=== PATIENT | female | born 1945 | race Caucasian/White ===

== ENCOUNTER → 2016-02-29 | Outpatient (CLI) | payer OTHER, MEDICARE ==
[~2016-02-29] MED LIST: B-COTAB18 PO; BIOT1TAB5 PO; CALC-358 PO; CHOL100010 PO; EXM/25 PO; LOSA1TAB38 PO; MULTTAB58 PO; MVC20 PO; NOPALEA PO; TRAM-10 PO; TYLOTC500 PO; VITAMINE; WHEAPOW
--- NOTE | 2016-03-04 13:07 | CODING QUERY MEDICAL NECESSITY ---
SUPPORTING DIAGNOSIS NEEDED A supporting diagnosis is required for the test/procedure performed on this patient in order for us to be reimbursed by the patient's insurance. Please provide a supporting diagnosis for the following test/procedure listed below next to the test name along with your signature. *If there is no additional diagnosis for this patient that would support the following test/procedure please document that below next to the test/procedure. Test(s)/Procedure(s) that require a supporting diagnosis: DOS 02/28 * Bone Density Study DIAGNOSIS: Provider Signature: Date: Thank you Kate Lopez Health Information Management Once completed, please kindly fax back to [phone] For questions please call [phone]
== END | disposition home or self-care (01) ==
LOC: C.MAMM 13:25
PROVIDERS: ATTEND Nurse Practitioner Family
DX: C50.919 Malignant neoplasm of unspecified site of unspecified female breast (principal)

== ENCOUNTER → 2016-08-06 | Outpatient (CLI) | payer OTHER, MEDICARE ==
--- NOTE | 2016-08-06 14:43 | MAMMOGRAPHY REPORT ---
UNILATERAL LEFT DIGITAL DIAGNOSTIC MAMMOGRAM TOMOSYNTHESIS WITH CAD AND TARGETED LEFT ULTRASOUND: 07/25 CLINICAL HISTORY: 71-year-old woman presents for follow-up in the left breast. A circumscribed 4 x 5 mm mass in the 6:00 left breast was felt to correlate with a simple cyst seen on MRI. Reassess poss ible intraductal debris in the 9:00 left breast. Personal history of right breast cancer status post breast conservation therapy. TECHNIQUE: Left breast tomosynthesis in addition to standard 2D mammography was performed. Current st udy was also evaluated with a Computer Aided Detection (CAD) system. COMPARISON: Comparison is made to exams dated: 02/22/2016 breast MRI, 02/05/2016 ultrasound, 016 mammogram, 02/20/2015 breast MRI, 02/02/2015 mammogram, and 02/15/2014 mammogram - [facility]. BREAST COMPOSITION: There are scattered areas of fibroglandular density in the left breast. FINDINGS: There is an asymmetry in the superior posterior left breast, only seen on the MLO view whic h could represent overlapping tissue although this area is equivocal on the corresponding tomosynthes is images. Therefore, an additional spot compression tomosynthesis a view and targeted ultrasound we re performed. With the additional spot compression left MLO view, this asymmetry effaces to baseline and has the appearance of normal overlapping tissue. No corresponding abnormality is seen on the ex aggerated lateral CC tomosynthesis images. No obvious new mass, developing asymmetry, focal area of architectural distortion or suspicious mass or calcifications are identified in the left breast. Targeted ultrasound was performed in the 6:00, 9:00 and upper outer quadrants of the left breast. In the 6:00 axis, 2 cm from the nipple, there is a mildly complicated cyst with thin internal nonvascul ar septations measuring 5.9 x 3.0 x 2.6 mm. This is thought to correlate with the circumscribed mamm ographic mass and also with the benign cyst seen on recent MRI. In the 9:00 left breast, 1 cm from t he nipple, there is focal duct ectasia with echogenic material within the duct. In total this segmen t of the duct measures 7.9 x 2.4 x 2.5 mm. Evaluating this finding in comparing to the prior MRI, th ere is a focally dilated duct in the 9:00 anterior left breast which is intrinsically T1 hyperintense and does not demonstrate any postcontrast enhancement suggesting this represents benign intraductal debris as opposed to a suspicious intraductal mass. This segment of duct has not significantly mccracken ed in size or appearance since the prior left breast ultrasound dated 02/05/2016, given slight differ ences in measuring technique. Throughout the left upper outer quadrant, no suspicious solid or cysti c mass is identified. IMPRESSION: ACR-BI-RADS CATEGORY 3: PROBABLY BENIGN, TARGETED ULTRASOUND ACR-BI-RADS CATEGORY 3: PRO BABLY BENIGN 1. There is no mammographic evidence of malignancy within the left breast. There is a stable 4 mm c ircumscribed mass in the 6:00 axis, thought to correlate with a complicated cyst seen on ultrasound, also corresponding with a cyst seen on MRI. This is considered benign and no further close follow-up is needed at this time. 2. An asymmetry in the superior left breast on the initial MLO view effaces with a supplemental spot compression left MLO view and most likely represented normal overlapping tissue. No suspicious sono graphic correlate was seen. 3. There is a focally dilated duct in the 9:00 left breast, 1 cm from the nipple identified on ultra sound. When referring back to the breast MRI, a mildly prominent duct is seen in this location, and there is no evidence of postcontrast enhancement suggesting this represents benign duct ectasia with internal debris. However, another short interval follow-up targeted ultrasound in the 9:00 axis is r ecommended in 6 more months to ensure longer stability. Bilateral screening mammography is also due at that time. These results and recommendations were discussed with the patient at the time of the exam. She tenta tively scheduled a follow-up appointment prior to leaving our department. Approximately 10% of breast cancers are not detected with mammography. A negative mammographic report should not delay biopsy if a clinically suggestive mass is present. Kiley Wright M.D. ay/:08/06/2016 14:32:05 Technical Support Representative: Mone BROUSSARD)(Mary), [facility] letter sent: Follow Up Recommended 3 BI-RADS Code: ACR-BI-RADS Category 3: Probably Benign Ultrasound BI-RADS: ACR-BI-RADS Category 3: Pr obably Benign
== END | disposition home or self-care (01) ==
LOC: C.MAMM 09:56
PROVIDERS: ATTEND Surgery
DX: Z09 Encounter for follow-up examination after completed treatment for conditions other than malignant neoplasm (principal); C50.919 Malignant neoplasm of unspecified site of unspecified female breast

== ENCOUNTER → 2016-10-01 | Outpatient (CLI) | payer OTHER, MEDICARE ==
[2015-09-28 13:24] VITALS: BP 130/81; PULSE 75
[2016-10-01 13:53] VITALS: BP 134/66; PULSE 77; TEMP 36.3; O2SAT 97
--- NOTE | 2016-10-01 16:43 | Radiation Oncology Follow-Up ---
Radiation Oncology Follow-Up Date of Visit Oct 01, 2016. Reason For Visit Annual follow-up Radiation Completion Date 03/17/13 Diagnosis (1) Infiltrating duct adenocarcinoma Status: Resolved Onset Date: 10/15/2012 Location: right breast Histology Subtype: ductal Stage: l (A) Permanent Comment: Abnormal right breast mammogram Excisional biopsy 10/15/2012 revealing invasive ductal carcinoma Estrogen receptor positive, progesterone receptor negative, HER-2/natasha negative Status post quadrantectomy and axillary dissection 10/02/2012 Pathologic stage [id number] Oncotype DX score of 13 status post completion of radiation therapy 03/17/2013 received 6120 cGy Last Edited By: Sana Iglesias on Sep 28, 2014 15:38 Interim History She is noted that her skin is easily irritated. On a regular basis she uses our low with cornstarch and this helps to prevent discomfort of the skin. She also uses cocoa butter lotion. She feels that the changes of the skin and the breasts fibrous tissue is unchanged over this past year. She has completed lymphedema therapy for her arm. Following the lymphedema therapy she was also given treated for arthritis of her hands which greatly helped in discomfort of her upper extremities. She did have an outbreak of herpes zoster. This was treated through her primary care physician's office. The lesions quickly resolved with Valtrex. It did take a number of months for the pain to resolve. Allergies Coded Allergies: Adhesives (Verified Allergy, Mild, RASH, 02/20/15) Lisinopril (Unverified Allergy, Mild, Cough, 09/28/14) Home Medications Scheduled Acetaminophen (Tylenol), 1,000 MG PO DAILY B-Complex Vitamins (Vitamin B Complex), 1 TAB PO DAILY Biotin (Biotin), 500 MCG PO BID Calcium Citrate-Vitamin D (Calcium Citrate+ D), 1 TAB PO DAILY Cholecalciferol (Vitamin D), 2,000 INTER.UNIT PO DAILY Exemestane (Aromasin), 25 MG PO DAILY Losartan Potassium (Cozaar), 100 MG PO DAILY Lovastatin (Lovastatin), 0.5 TAB PO DAILY Multiple Vitamin (Multivitamin), 1 TAB PO DAILY Wheat Dextrin (Benefiber Drink Mix), 2 TBS DAILY [Nopalea], 1 CUP PO DAILY Review of Systems Gastrointestinal: Symptoms: WNL GI Comments: Bowels are not normal since having colon cancer in 2009 Oral: Symptoms: No Problems Respiratory: Symptoms: WNL Urinary: Symptoms: WNL Skin: Symptoms: No Problems Other Skin Symptoms: Gets pain in right axilla area Breast: Right Upper Arm Measurement: 28.8 Right Mid Arm Measurement: 24.8 Right Wrist Measurement: 16.4 Left Upper Arm Measurement: 28.3 Left Mid Arm Measurement: 24.2 Left Wrist Measurement: 16.3 Arm Dominence: Right Patient Cosmetic Evaluation: Poor Staff Cosmetic Evalaluation: Poor Physical Exam Vital Signs Date Time Temp Pulse Resp B/P (MAP) Pulse Ox O2 Delivery O2 Flow Rate FiO2 10/01/16 13:53 36.3 77 20 134/66 97 Pain: Pain Onset: April 2015 went away returned mid August Pain Duration: only occurs in the AM Side: Right Pain Location: Breast/Axilla Patient Pain Scale: 0 - 10 Initial Pain Intensity: 6.0 Pain Description: Aching Additional Comments: mild nausea pain Fatigue: None General Appearance: no apparent distress Eyes: normal inspection, EOMI ENT: normal ENT inspection, hearing grossly normal Neck: no adenopathy, thyroid normal Respiratory/Chest: lungs clear, no respiratory distress, no accessory muscle use Breast: Breast examination reveals well-healed incisions of the right breast. There is generalized fibrous changes of the breast. There are no masses or tenderness and no axillary adenopathy. The previous red discoloration has resolved. Using the [place] score cosmesis she has a fair outcome. The left breast showed no masses or tenderness and no axillary adenopathy. Cardiovascular: regular rate, rhythm, no gallop, no murmur Abdomen: non tender, soft Extremities: no pedal edema Neurologic/Psychiatric: no motor/sensory deficits, alert, normal mood/affect Skin: warm/dry Laboratory Studies Test 08/29/16 11:48 White Blood Count 5.10 K/uL (4.8-10.8) Red Blood Count 3.97 M/uL (4.2-5.4) Hemoglobin 12.7 g/dL (12.0-16.0) Hematocrit 38.5 % (37-47) Mean Corpuscular Volume 97.0 fL (80-100) Mean Corpuscular Hemoglobin 32.0 pg (25-34) Mean Corpuscular Hemoglobin Concent 33.0 g/dl (32-36) Platelet Count 235 K/uL (130-400) Mean Platelet Volume 10.4 fL (7.4-10.4) Neutrophils (%) (Auto) 56.6 % Lymphocytes (%) (Auto) 33.7 % Monocytes (%) (Auto) 7.5 % Eosinophils (%) (Auto) 1.8 % Basophils (%) (Auto) 0.4 % Neutrophils # (Auto) 2.89 K/uL (1.4-6.5) Lymphocytes # (Auto) 1.72 K/uL (1.2-3.4) Monocytes # (Auto) 0.38 K/uL (0.11-0.59) Eosinophils # (Auto) 0.09 K/uL (0-0.5) Basophils # (Auto) 0.02 K/uL (0-0.2) RDW Standard Deviation 49.2 fL (36.4-46.3) RDW Coefficient of Variation 13.7 % (11.5-14.5) Immature Granulocyte % (Auto) 0.0 % Immature Granulocyte # (Auto) 0.00 K/uL (0.00-0.02) Sodium Level 143 mmol/L (136-145) Potassium Level 3.9 mmol/L (3.5-5.1) Chloride Level 108 mmol/L (98-107) Carbon Dioxide Level 31 mmol/L (21-32) Anion Gap 4.0 mmol/L (3-11) Blood Urea Nitrogen 13 mg/dl (7-18) Creatinine 0.74 mg/dl (0.60-1.20) Est Creatinine Clear Calc Drug Dose 62.8 ml/min Estimated GFR () 93.2 Estimated GFR (Non- 80.4 BUN/Creatinine Ratio 17.7 (10-20) Random Glucose 90 mg/dl (70-99) Calcium Level 9.1 mg/dl (8.5-10.1) Total Bilirubin 0.6 mg/dl (0.2-1) Aspartate Amino Transferase (AST) 16 U/L (15-37) Alanine Aminotransferase (ALT) 24 U/L (12-78) Alkaline Phosphatase 54 U/L (45-117) Lactate Dehydrogenase 197 U/L (84-246) Total Protein 6.5 gm/dl (6.4-8.2) Albumin 3.6 gm/dl (3.4-5.0) Globulin 2.9 gm/dl (2.5-4.0) Albumin/Globulin Ratio 1.2 (0.9-2) Additional Studies Patient: YAYA AMARAL [facility] Rec: [id number] Address1: [address] [place] [address] Address2: [facility] ID: [id number] Date: 1945 Sex: F Ref Phy: Pedro Cooper M.D. Att Phy: Mike Wright Rosa Phy: Pedro Cooper M.D. Inter Phy: Kiley Wright MD [facility] Zip: [place] [address] SC: C.MAMM Report #: [id number] Community Service Worker: STEW Diagnosis: 6 MO F/U Service Date: 08/06/16 MNE: [id number] Ordering Dr: Mike Wright CC: Mike Wright CONF: DICTATED BY: Kiley Wright MD MAMMOGRAPHY REPORT UNILATERAL LEFT DIGITAL DIAGNOSTIC MAMMOGRAM TOMOSYNTHESIS WITH CAD AND TARGETED LEFT ULTRASOUND: 08/06/2016 CLINICAL HISTORY: 71-year-old woman presents for follow-up in the left breast. A circumscribed 4 x 5 mm mass in the 6:00 left breast was felt to correlate with a simple cyst seen on MRI. Reassess possible intraductal debris in the 9: 00 left breast. Personal history of right breast cancer status post breast conservation therapy. TECHNIQUE: Left breast tomosynthesis in addition to standard 2D mammography was performed. Current study was also evaluated with a Computer Aided Detection (CAD ) system. COMPARISON: Comparison is made to exams dated: 02/22/2016 breast MRI, 2015 ultrasound, 02/05/2016 mammogram, 02/20/2015 breast MRI, 02/02/2015 mammogram, and 02/15/2014 mammogram - [facility]. BREAST COMPOSITION: There are scattered areas of fibroglandular density in the left breast. FINDINGS: There is an asymmetry in the superior posterior left breast, only seen on the MLO view which could represent overlapping tissue although this area is equivocal on the corresponding tomosynthesis images. Therefore, an additional spot compression tomosynthesis a view and targeted ultrasound were performed. With the additional spot compression left MLO view, this asymmetry effaces to baseline and has the appearance of normal overlapping tissue. No corresponding abnormality is seen on the exaggerated lateral CC tomosynthesis images. No obvious new mass, developing asymmetry, focal area of architectural distortion or suspicious mass or calcifications are identified in the left breast. Targeted ultrasound was performed in the 6:00, 9:00 and upper outer quadrants of the left breast. In the 6:00 axis, 2 cm from the nipple, there is a mildly complicated cyst with thin internal nonvascular septations measuring 5.9 x 3.0 x 2.6 mm. This is thought to correlate with the circumscribed mammographic mass and also with the benign cyst seen on recent MRI. In the 9:00 left breast , 1 cm from the nipple, there is focal duct ectasia with echogenic material within the duct. In total this segment of the duct measures 7.9 x 2.4 x 2.5 mm. Evaluating this finding in comparing to the prior MRI, there is a focally dilated duct in the 9:00 anterior left breast which is intrinsically T1 hyperintense and does not demonstrate any postcontrast enhancement suggesting this represents benign intraductal debris as opposed to a suspicious intraductal mass. This segment of duct has not significantly changed in size or appearance since the prior left breast ultrasound dated 02/05/2016, given slight differences in measuring technique. Throughout the left upper outer quadrant, no suspicious solid or cystic mass is identified. IMPRESSION: ACR-BI-RADS CATEGORY 3: PROBABLY BENIGN, TARGETED ULTRASOUND ACR-BI -RADS CATEGORY 3: PROBABLY BENIGN 1. There is no mammographic evidence of malignancy within the left breast. There is a stable 4 mm circumscribed mass in the 6:00 axis, thought to correlate with a complicated cyst seen on ultrasound, also corresponding with a cyst seen on MRI. This is considered benign and no further close follow-up is needed at this time. 2. An asymmetry in the superior left breast on the initial MLO view effaces with a supplemental spot compression left MLO view and most likely represented normal overlapping tissue. No suspicious sonographic correlate was seen. 3. There is a focally dilated duct in the 9:00 left breast, 1 cm from the nipple identified on ultrasound. When referring back to the breast MRI, a mildly prominent duct is seen in this location, and there is no evidence of postcontrast enhancement suggesting this represents benign duct ectasia with internal debris. However, another short interval follow-up targeted ultrasound in the 9:00 axis is recommended in 6 more months to ensure longer stability. Bilateral screening mammography is also due at that time. These results and recommendations were discussed with the patient at the time of the exam. She tentatively scheduled a follow-up appointment prior to leaving our department. Approximately 10% of breast cancers are not detected with mammography. A negative mammographic report should not delay biopsy if a clinically suggestive mass is present. Kiley Wright M.D. ay/:08/06/2016 14:32:05 Novelty Dipper: Mone BROUSSARD)(Mary), [facility] letter sent: Follow Up Recommended 3 BI-RADS Code: ACR-BI-RADS Category 3: Probably Benign Ultrasound BI-RADS: ACR- BI-RADS Category 3: Probably Benign Dictated by: Kiley Wright MD Signed by: Kiley Wright MD Assessment & Plan Plan: Continue mammography as scheduled. Continue follow-up with Dr. Dhaliwal and her primary care physician. We asked her to return to our office in 1 year. She may call if she has any questions or concerns in the interim. She has now completed lymphedema therapy. She can call if she has any current concerns about recurrence. Total Time In Follow-Up I spent 20 minutes speaking to the patient performing examination. I spent 15 minutes reviewing information in completing this note Copy To Ba Dhaliwal D.O.; Pedro Cooper M.D.
== END | disposition home or self-care (01) ==
LOC: C.ONC 13:43
PROVIDERS: ATTEND Physician Assistant Medical
DX: Z08 Encounter for follow-up examination after completed treatment for malignant neoplasm (principal); Z92.3 Personal history of irradiation; Z85.3 Personal history of malignant neoplasm of breast

== ENCOUNTER → 2017-02-05 | Outpatient (CLI) | payer OTHER, MEDICARE ==
[~2017-02-05] MED LIST changes: -TRAM-10 PO; -VITAMINE
--- NOTE | 2017-02-05 16:02 | MAMMOGRAPHY REPORT ---
BILATERAL DIGITAL DIAGNOSTIC MAMMOGRAM TOMOSYNTHESIS WITH CAD AND TARGETED BILATERAL ULTRASOUND: 01/24 CLINICAL HISTORY: 71-year-old woman with a personal history of right breast cancer status post breast conservation treatment in 2012. She presents for bilateral annual mammography and also reports a go lf ball sized painful lump that she occasionally feels in the right axilla, located within an area of skin thickening and tightening due to prior surgery. Also follow-up of findings in the left breast including a dilated hypoechoic duct in the 9:00 left breast on ultrasound. During the last diagnostic evaluation performed in January 2016, the patient reported tightness in t he right axilla and sonographic evaluation was also performed at that time. A breast MRI performed a fter that diagnostic workup felt to demonstrate any suspicious abnormality in the breasts or right ax illa. TECHNIQUE: Bilateral breast tomosynthesis in addition to standard 2D mammography was performed. Curre nt study was also evaluated with a Computer Aided Detection (CAD) system. COMPARISON: Comparison is made to exams dated: 08/06/2016 mammogram, 02/05/2016 mammogram, 02/02/2015 mammogram, 08/12/2014 mammogram, 02/15/2014 mammogram - [facility], and 10/15/2012 m ammogram. BREAST COMPOSITION: There are scattered areas of fibroglandular density in both breasts. FINDINGS: The CC and MLO views of the right breast are suboptimal due to skin tightening after surger y in the right breast. Within this limitation, there is expected architectural distortion as well as skin irregularity in the upper outer posterior right breast, likely due to prior lumpectomy. No obv ious new mass, asymmetry, suspicious microcalcifications or unexpected distortion is identified in th e right breast. There is a stable low-density circumscribed 4 mm mass in the slightly medial middle one third of the left breast, which is stable mammographically dating back to 2013 and also thought to represent a com plicated cyst on both MRI and ultrasound. No new suspicious mass, architectural distortion or cluste r of microcalcifications is seen in the left breast. Targeted ultrasound was performed over the area of concern in the right axilla and also in the 9:00 l eft breast to reevaluate the area of focal duct ectasia with hypoechoic debris within the duct. Over the area of concern in the right axilla, hypoechoic scar tissue is identified without evidence of in creased vascularity. No suspicious lymphadenopathy or suspicious solid or cystic mass identified. I n the left 9:00 breast, 1 cm from the nipple, a comet-shaped isoechoic to slightly hypoechoic mass is again identified, most likely representing focal duct ectasia with internal debris. This measures 6 .1 x 2.2 x 2.3 mm and has not significantly changed comparing back to the 02/05/2016 ultrasound and m ost likely benign duct ectasia. Another 12 month follow-up targeted ultrasound is recommended to ens ure at least 2 years of stability to confirm benignity. IMPRESSION: ACR-BI-RADS CATEGORY 3: PROBABLY BENIGN, TARGETED ULTRASOUND ACR-BI-RADS CATEGORY 3: PRO BABLY BENIGN 1. No suspicious targeted sonographic abnormality in the area of cough size lump and pain in the rig ht axilla, within an area of prior surgery which was pointed out by the patient on today's exam. The patient is currently scheduled for a breast MRI within the next month, in which this area can be ass essed to evaluate for any abnormal enhancement. Clinical follow-up is also recommended, and the jannie ent reports she has a follow-up appointment with her Oncologist, Dr. Dhaliwal. 2. Stable mammographic appearance of the breasts including post treatment changes in the right breas t and a stable benign low-density circumscribed 4 mm mass in the medial left breast. 3. Focal duct ectasia with internal debris identified in the 9:00 left breast on ultrasound is stabl e for one year but another targeted ultrasound is recommended in 12 months to ensure at least 2 years of stability to confirm benignity. These results and recommendations were discussed with the patient at the time of the exam. Approximately 10% of breast cancers are not detected with mammography. A negative mammographic report should not delay biopsy if a clinically suggestive mass is present. Kiley Wright M.D. ay/:02/05/2017 12:26:21 High School Professional: Vika VASQUEZ(Hernán)(M), [facility] letter sent: Follow Up Recommended 3 BI-RADS Code: ACR-BI-RADS Category 3: Probably Benign Ultrasound BI-RADS: ACR-BI-RADS Category 3: Pr obably Benign
== END | disposition home or self-care (01) ==
LOC: C.MAMM 10:04
PROVIDERS: ATTEND Internal Medicine Hematology & Oncology
DX: N63.10 Unspecified lump in the right breast, unspecified quadrant (principal); Z85.3 Personal history of malignant neoplasm of breast

== ENCOUNTER → 2017-02-25 | Outpatient (CLI) | payer OTHER, MEDICARE ==
[~2017-02-25] MED LIST changes: +GADAVIST IV PRN; +MECL1TAB40 PO; +OXYB5TAB21 PO
--- NOTE | 2017-02-26 14:58 | MAMMOGRAPHY REPORT ---
BREAST MRI OF BOTH BREASTS : 02/25/2017 CLINICAL HISTORY: 71-year-old woman with a personal history of right breast cancer status post breast conservation treatment in 2012. She recently presented for diagnostic workup and reported a golf ba ll sized painful lump in the right axilla, for which targeted ultrasound demonstrated no suspicious a bnormalities. She also presents for additional surveillance given the personal history of right criss[address] cancer. COMPARISON: Comparison is made to exams dated: 02/05/2017 mammogram, 02/05/2017 ultrasound, 7 ultrasound, 08/06/2016 mammogram, 02/22/2016 breast MRI, and 02/05/2016 ultrasound - [facility]. TECHNIQUE: Using a 1.5 Nel magnet and dedicated breast coil, multisequence axial images were obtain ed through the breasts. After uneventful IV administration of 7 mL of Gadavist, dynamic multiphase c ontrast-enhanced axial images, and sagittal postcontrast were obtained. Temporal subtraction axial i mages and 3-D MIP images are provided. Everything was then reviewed on a 3-D workstation, [employer]. FINDINGS: Right breast: There is no significant background parenchymal enhancement. There is skin irregularity and expected architectural distortion in the upper outer posterior right breast, at the site of prio r lumpectomy. A 2 mm focus of enhancement is again seen near the surgical site, not significantly ch anged comparing to the prior 2015 and 2014 breast MRIs and with 2 years of stability most likely marline gn (axial page 57/116). There is no suspicious enhancing mass near the surgical site in the right br east. No suspicious non-mass enhancement. No suspicious masses or lymphadenopathy seen in the right axilla in the area of painful lump described by the patient. Continued clinical follow-up is recomm ended. Left breast: There is minimal background parenchymal enhancement of the left breast. A 3.9 mm T2 hyp erintense rim-enhancing cyst is again seen in the 6:00 far inferior left breast, unchanged dating sai k to 2014, therefore considered benign. No new suspicious enhancing mass, non-mass enhancement, arch itectural distortion or suspicious kinetics are seen in the left breast. It should be noted that the re are no suspicious enhancing masses or linear enhancement to suggest suspicious intraductal process in the approximate 9:00 left breast in the area of possible duct with internal debris described on t argeted left breast ultrasound report. This finding is most likely benign given lack of MRI enhancem ent. No suspicious left axillary lymphadenopathy. IMPRESSION: ACR BI-RADS CATEGORY 2: BENIGN 1. Expected posttreatment changes in the right breast, without MRI evidence of malignancy. 2. No suspicious masses or suspicious lymphadenopathy identified in the right axilla in the area of concern reported by the patient. Therefore, continued clinical monitoring is recommended. 3. Stable MRI appearance of the left breast, without evidence of malignancy. The patient will receive written notification of the results. Kiley Wright M.D. ay/:02/25/2017 21:30:18 Food Adviser: tax audit manager, [facility] letter sent: Normal /2 BI-RADS Code: ACR BI-RADS Category 2: Benign
== END | disposition home or self-care (01) ==
LOC: C.MRI 09:43
PROVIDERS: ATTEND Nurse Practitioner Family
DX: C50.911 Malignant neoplasm of unspecified site of right female breast (principal); Z08 Encounter for follow-up examination after completed treatment for malignant neoplasm

== ENCOUNTER → 2017-10-02 | Outpatient (CLI) | payer OTHER, MEDICARE ==
[~2017-10-02] MED LIST changes: -GADAVIST IV PRN
[2017-10-02 13:06] VITALS: BP 150/67; PULSE 77; TEMP 37; O2SAT 96
--- NOTE | 2017-10-02 14:39 | Radiation Oncology Follow-Up ---
Radiation Oncology Follow-Up Date of Visit Oct 02, 2017. Reason For Visit Annual follow-up Radiation Completion Date finished 03-17-2013 Diagnosis (1) Infiltrating duct adenocarcinoma Status: Resolved Onset Date: 10/15/2012 Location: Right breast Histology Subtype: Ductal Stage: l (A) Permanent Comment: Abnormal right breast mammogram Excisional biopsy 10/15/2012 revealing invasive ductal carcinoma Estrogen receptor positive, progesterone receptor negative, HER-2/natasha negative Status post quadrantectomy and axillary dissection 10/02/2012 Pathologic stage [id number] Oncotype DX score of 13 status post completion of radiation therapy 03/17/2013 received 6120 cGy Last Edited By: Sana Iglesias on Sep 28, 2014 15:38 Interim History She is noted no particular changes to the breast over this past year. She continues to have discomfort if she lies on the breast. If there is pressure with wearing a bra there can be discomfort. If she lies on her breast for a long period night she can have significant pain up to level 8 or 9. When she does not lie on the breast she does not have pain. She is up-to-date on mammography as well as MRIs.. She is noted no masses and no changes of the axilla. She has had no swelling of her arm. She has been followed by her primary care in regards to vertigo. She is going to be undergoing physical therapy. She is on meclizine. She has also had issues with stool incontinence. She has had this for many years. She recalls speaking with her colorectal surgeon 4 years ago about this issue. She stated that it was felt that the condition has occurred due to having large children at . One child was over 9 pounds and 2 others were 8 pounds. Allergies Coded Allergies: Adhesives (Verified Allergy, Mild, RASH, 02/20/15) Lisinopril (Unverified Allergy, Mild, Cough, 09/28/14) Home Medications Scheduled Acetaminophen (Tylenol), 1,000 MG PO TID B-Complex Vitamins (Vitamin B Complex), 1 TAB PO DAILY Biotin (Biotin), 500 MCG PO DAILYBB Calcium Citrate-Vitamin D (Calcium Citrate+ D), 1 TAB PO DAILY Cholecalciferol (Vitamin D), 2,000 INTER.UNIT PO DAILY Exemestane (Aromasin), 25 MG PO DAILY Losartan Potassium (Cozaar), 100 MG PO DAILY Lovastatin (Lovastatin), 0.5 TAB PO DAILY Multiple Vitamin (Multivitamin), 1 TAB PO DAILY Oxybutynin Chloride (Ditropan Xl), 1 TAB PO DAILY Wheat Dextrin (Benefiber Drink Mix), 2 TBS DAILY [Nopalea], 2 TAB PO DAILY Scheduled PRN Meclizine HCl (Meclizine HCl), 1 TAB PO TID PRN for Dizziness or Vertigo Review of Systems Gastrointestinal: Symptoms: WNL GI Comments: occ. soft stool incontinence , since bowel cancer surgery 2009 Oral: Symptoms: No Problems Respiratory: Symptoms: WNL Urinary: Symptoms: Incontinence Comments: nocturia times 2 - 3 , " leakage at times " Skin: Symptoms: No Problems Other Skin Symptoms: "occ inside of elbows gets itchy " Breast: Right Upper Arm Measurement: 31.5 Right Mid Arm Measurement: 24.5 Right Wrist Measurement: 16.1 Left Upper Arm Measurement: 30.5 Left Mid Arm Measurement: 24.5 Left Wrist Measurement: 15.5 Arm Dominence: Right Patient Cosmetic Evaluation: Excellent Staff Cosmetic Evalaluation: Excellent Physical Exam Vital Signs Date Time Temp Pulse Resp B/P (MAP) Pulse Ox O2 Delivery O2 Flow Rate FiO2 10/02/17 13:06 37.0 77 16 150/67 96 Fatigue: None General Appearance: no apparent distress Eyes: normal inspection, EOMI ENT: normal ENT inspection, hearing grossly normal Neck: no adenopathy, thyroid normal Respiratory/Chest: lungs clear, no respiratory distress, no accessory muscle use Breast: Breast examination reveals well-healed incisions of the right breast. There is generalized fibrous tissue. This is mainly located in the right upper outer quadrant. She does not elicit tenderness to palpation. There are no masses. There is no axillary adenopathy. There is a deficit in the upper outer quadrant from lumpectomy. There is asymmetry. There is mild telangiectasia. Using the Middlebrook score of cosmesis she has a fair outcome. The left breast showed no masses or tenderness and no axillary adenopathy. The left breast showed no masses or tenderness and no axillary adenopathy. Cardiovascular: regular rate, rhythm, no gallop, no murmur Extremities: no pedal edema Neurologic/Psychiatric: no motor/sensory deficits, alert, normal mood/affect Skin: warm/dry Pain Management Patient Reports Pain: No Side: Bilateral Patient Preferred Pain Scale: 0 - 10 Initial Pain Intensity: 0.0 Pain Management Plan She denies pain therefore requires no pain management. She does have pain if there is pressure on the breast. This did not require any medications. Laboratory Laboratory Results: not applicable Pathology Pathology Results: not applicable Imaging Imaging Studies: were reviewed, and pertinent findings noted below Imaging Comments Patient: YAYA AMARAL Rec: [id number] Address1: [address] [place] [address] Address2: Acct ID: [id number] Date: 1945 Sex: F Ref Phy: Ba Dhaliwal D.O. Att Phy: Ba Dhaliwal D.O. Rosa Phy: Pedro Cooper M.D. Inter Phy: Kiley Wright MD [facility] Zip: [place] [id number] SC: C.MAMM Report #: [id number] Glove Former: SARA Diagnosis: 6 MO F/U BILATERAL Service Date: 02/05/17 MNE: MAMM1 Ordering Dr: Ba Dhaliwal D.O. CC: Ba Dhaliwal D.O. CONF: DICTATED BY: Kiley Wright MD MAMMOGRAPHY REPORT BILATERAL DIGITAL DIAGNOSTIC MAMMOGRAM TOMOSYNTHESIS WITH CAD AND TARGETED BILATERAL ULTRASOUND: 02/05/2017 CLINICAL HISTORY: 71-year-old woman with a personal history of right breast cancer status post breast conservation treatment in 2012. She presents for bilateral annual mammography and also reports a golf ball sized painful lump that she occasionally feels in the right axilla, located within an area of skin thickening and tightening due to prior surgery. Also follow-up of findings in the left breast including a dilated hypoechoic duct in the 9:00 left breast on ultrasound. During the last diagnostic evaluation performed in January 2016, the patient reported tightness in the right axilla and sonographic evaluation was also performed at that time. A breast MRI performed after that diagnostic workup felt to demonstrate any suspicious abnormality in the breasts or right axilla. TECHNIQUE: Bilateral breast tomosynthesis in addition to standard 2D mammography was performed. Current study was also evaluated with a Computer Aided Detection (CAD) system. COMPARISON: Comparison is made to exams dated: 08/06/2016 mammogram, 02/05/2016 mammogram, 02/02/2015 mammogram, 08/12/2014 mammogram, 02/15/2014 mammogram - [facility] [address], and 10/15/2012 mammogram. BREAST COMPOSITION: There are scattered areas of fibroglandular density in both breasts. FINDINGS: The CC and MLO views of the right breast are suboptimal due to skin tightening after surgery in the right breast. Within this limitation, there is expected architectural distortion as well as skin irregularity in the upper outer posterior right breast, likely due to prior lumpectomy. No obvious new mass, asymmetry, suspicious microcalcifications or unexpected distortion is identified in the right breast. There is a stable low-density circumscribed 4 mm mass in the slightly medial middle one third of the left breast, which is stable mammographically dating back to 2013 and also thought to represent a complicated cyst on both MRI and ultrasound. No new suspicious mass, architectural distortion or cluster of microcalcifications is seen in the left breast. Targeted ultrasound was performed over the area of concern in the right axilla and also in the 9:00 left breast to reevaluate the area of focal duct ectasia with hypoechoic debris within the duct. Over the area of concern in the right axilla, hypoechoic scar tissue is identified without evidence of increased vascularity. No suspicious lymphadenopathy or suspicious solid or cystic mass identified. In the left 9:00 breast, 1 cm from the nipple, a comet-shaped isoechoic to slightly hypoechoic mass is again identified, most likely representing focal duct ectasia with internal debris. This measures 6.1 x 2.2 x 2.3 mm and has not significantly changed comparing back to the 02/05/2016 ultrasound and most likely benign duct ectasia. Another 12 month follow-up targeted ultrasound is recommended to ensure at least 2 years of stability to confirm benignity. IMPRESSION: ACR-BI-RADS CATEGORY 3: PROBABLY BENIGN, TARGETED ULTRASOUND ACR-BI -RADS CATEGORY 3: PROBABLY BENIGN 1. No suspicious targeted sonographic abnormality in the area of cough size lump and pain in the right axilla, within an area of prior surgery which was pointed out by the patient on today's exam. The patient is currently scheduled for a breast MRI within the next month, in which this area can be assessed to evaluate for any abnormal enhancement. Clinical follow-up is also recommended, and the patient reports she has a follow-up appointment with her Oncologist, Dr. Dhaliwal. 2. Stable mammographic appearance of the breasts including post treatment changes in the right breast and a stable benign low-density circumscribed 4 mm mass in the medial left breast. 3. Focal duct ectasia with internal debris identified in the 9:00 left breast on ultrasound is stable for one year but another targeted ultrasound is recommended in 12 months to ensure at least 2 years of stability to confirm benignity. These results and recommendations were discussed with the patient at the time of the exam. Approximately 10% of breast cancers are not detected with mammography. A negative mammographic report should not delay biopsy if a clinically suggestive mass is present. Kiley Wright M.D. ay/:02/05/2017 12:26:21 Project Economist: Vika BROUSSARD)(Mary), [facility] [address] [facility] letter sent: Follow Up Recommended 3 BI-RADS Code: ACR-BI-RADS Category 3: Probably Benign Ultrasound BI-RADS: ACR- BI-RADS Category 3: Probably Benign Dictated by: Kiley Wright MD Signed by: Kiley Wright MD Patient: YAYA AMARAL [facility] Rec: [id number] Address1: [address] [place] [address] Address2: Acct ID: [id number] Date: 1945 Sex: F Ref Phy: Brandi Rosas CRNP Att Phy: Brandi Rosas CRNP Rosa Phy: Pedro Cooper M.D. Inter Phy: Kiley Wright MD [facility] Zip: [place] [address] SC: AriannaMRI Report #: [id number] Glove Former: ALIZE Diagnosis: 12 MONTH F/U HX BREAST CA Service Date: 02/25/17 MNE: MAMM1 Ordering Dr: Brandi Rosas CC: Brandi Rosas CRNP CONF: DICTATED BY: Kiley Wright MD MAMMOGRAPHY REPORT BREAST MRI OF BOTH BREASTS : 02/25/2017 CLINICAL HISTORY: 71-year-old woman with a personal history of right breast cancer status post breast conservation treatment in 2012. She recently presented for diagnostic workup and reported a golf ball sized painful lump in the right axilla, for which targeted ultrasound demonstrated no suspicious abnormalities. She also presents for additional surveillance given the personal history of right breast cancer. COMPARISON: Comparison is made to exams dated: 02/05/2017 mammogram, 2016 ultrasound, 08/06/2016 ultrasound, 08/06/2016 mammogram, 02/22/2016 breast MRI, and 02/05/2016 ultrasound - [facility] [address] [facility]. TECHNIQUE: Using a 1.5 Nel magnet and dedicated breast coil, multisequence axial images were obtained through the breasts. After uneventful IV administration of 7 mL of Gadavist, dynamic multiphase contrast-enhanced axial images, and sagittal postcontrast were obtained. Temporal subtraction axial images and 3-D MIP images are provided. Everything was then reviewed on a 3-D workstation, [employer]. FINDINGS: Right breast: There is no significant background parenchymal enhancement. There is skin irregularity and expected architectural distortion in the upper outer posterior right breast, at the site of prior lumpectomy. A 2 mm focus of enhancement is again seen near the surgical site, not significantly changed comparing to the prior 2015 and 2014 breast MRIs and with 2 years of stability most likely benign (axial page 57/116). There is no suspicious enhancing mass near the surgical site in the right breast. No suspicious non-mass enhancement. No suspicious masses or lymphadenopathy seen in the right axilla in the area of painful lump described by the patient. Continued clinical follow -up is recommended. Left breast: There is minimal background parenchymal enhancement of the left breast. A 3.9 mm T2 hyperintense rim-enhancing cyst is again seen in the 6:00 far inferior left breast, unchanged dating back to 2014, therefore considered benign. No new suspicious enhancing mass, non-mass enhancement, architectural distortion or suspicious kinetics are seen in the left breast. It should be noted that there are no suspicious enhancing masses or linear enhancement to suggest suspicious intraductal process in the approximate 9:00 left breast in the area of possible duct with internal debris described on targeted left breast ultrasound report. This finding is most likely benign given lack of MRI enhancement. No suspicious left axillary lymphadenopathy. IMPRESSION: ACR BI-RADS CATEGORY 2: BENIGN 1. Expected posttreatment changes in the right breast, without MRI evidence of malignancy. 2. No suspicious masses or suspicious lymphadenopathy identified in the right axilla in the area of concern reported by the patient. Therefore, continued clinical monitoring is recommended. 3. Stable MRI appearance of the left breast, without evidence of malignancy. The patient will receive written notification of the results. Kiley Wright M.D. ay/:02/25/2017 21:30:18 Project Economist: fitter / welder, [facility] letter sent: Normal / BI-RADS Code: ACR BI-RADS Category 2: Benign Dictated by: Kiley Wright MD Signed by: Kiley Wright MD Assessment & Plan Plan: We discussed the issues with the breast discomfort. This has shown gradual improvement over the the years post treatment. The post radiation therapy changes are showing improvement also there is less fibrous tissue and resolution of the inflammatory changes that had occurred post treatment to the skin. Continue regular follow-up with her medical oncologist and primary care provider. She is going to make an appointment with the colorectal surgeon to discuss the issue with bowel leakage. I did today speak with her about using Metamucil and doing Kegel exercises. Dr. Cooper is referring her for physical therapy to treat the vertigo. She will continue with scheduled mammography and MRIs. We asked her to return to our office in 1 year. She may call if she has any questions or concerns in the interim. Total Time In Follow-Up I spent 20 minutes speaking to the patient in performing examination. I spent 15 minutes reviewing information and completing this note. Copy To Pedro Cooper M.D.; Brandi Rosas CRNP
== END | disposition home or self-care (01) ==
LOC: C.ONC 12:44
PROVIDERS: ATTEND Physician Assistant Medical
DX: Z08 Encounter for follow-up examination after completed treatment for malignant neoplasm (principal); Z92.3 Personal history of irradiation; Z85.3 Personal history of malignant neoplasm of breast

== ENCOUNTER 2022-08-05 10:30 | Observation (INO) ==
[2022-08-05] MEDS ORDERED: MECLIZINE HCL 25 MG TAB PO STA (10:57)
[2022-08-05 11:17] LABS: Basophils # (auto) 0.03 K/uL (0-0.2); Basophils % (auto) 0.4 %; Eosinophils # (auto) 0.07 K/uL (0-0.50); Hematocrit (blood only) 38.3 % (37.0-47.0); Hemoglobin 12.6 g/dl (12.0-16.0); Immature Granulocytes # (auto) 0.02 K/uL (0.01-0.20); Immature Granulocytes % (auto) 0.3 %; Lymphocytes # (auto) 1.38 K/uL (1.2-3.4); Lymphocytes % (auto) 18.8 %; Mean Corpuscular Hemoglobin 31.7 pg (25.0-34.0); Mean Corpuscular Hgb Conc 32.9 g/dL (32.0-36.0); Mean Corpuscular Volume 96.5 fL (80.0-100.0); Mean Platelet Volume 10.2 fL (9.4-12.4); Monocytes # (auto) 0.44 K/uL (0.11-0.59); Neutrophils # (auto) 5.42 K/uL (1.40-6.50); Neutrophils % (auto) 73.5 %; Platelet Count 267 K/uL (130-400); RDW Coefficient of Variation 12.5 % (11.5-14.5); RDW Standard Deviation 44.1 fL (36.4-46.3); Red Blood Count 3.97 M/uL (4.20-5.40); White Blood Count 7.36 K/ul (4.8-10.8)
[2022-08-05 11:31] LABS: Albumin Globulin Ratio 1.7 (0.9-2); Albumin Level 4.2 gm/dl (3.4-5.0); BUN Creatinine Ratio 21.6 (10-20); Bilirubin,Total 0.4 mg/dl (0.2-1.0); Calcium 9.1 mg/dl (8.6-10.3); Creatinine Clr Calc Pharmacy 58.1 ml/min; Est GFR (African American) 89.3 ml/min; Est GFR (Non-African American) 77.1 ml/min; Globulin 2.5 gm/dl (2.5-4.0); Potassium 4.1 mmol/L (3.5-5.1); Total Protein 6.7 gm/dl (6.0-8.3)
[2022-08-05 11:40] LABS: Prothrombin Time 10.8 Seconds (9.0-12.0)
[2022-08-05 11:41] LABS: Troponin I High Sensitivity 65.5 pg/ml (0-14)
[2022-08-05] MEDS ORDERED: OPTIRAY 320 500ml IV ONE (11:53)
--- NOTE | 2022-08-05 12:08 | Emergency Department Note ---
Impression & Plan Dizziness, Non-ST elevation [place] (NSTEMI) ED Provider Note HISTORY OF PRESENT ILLNESS: Patient is a 77-year-old female presenting with dizziness and vomiting. Patient reports that this morning she was getting up and getting around when she felt very dizzy, described as her head spinning. Denies any changes in vision. Reports feeling very unsteady on her feet. Reports that walking and movements of her head makes her dizziness worse. Denies any chest pain or shortness of breath. Reports a history of vertigo. Denies any recent head injury or chiropractic manipulation of her neck ROS: as above PHYSICAL EXAM: Constitutional: Patient appears in no acute distress. HENT: Head: Normocephalic and atraumatic. Eyes: EOMI, PERRL. No reproducible dizziness or nystagmus elicited. Mouth/Throat: Mucous membranes moist. Neck: Trachea midline. Neck supple. Cardiovascular: RRR, No murmurs, rubs or gallops. Intact distal pulses. Pulmonary/Chest: No respiratory distress. Breath sounds clear and equal bilaterally. No wheezes or rales. Abdominal: BS +. Abdomen soft, no tenderness, rebound or guarding. Musculoskeletal: No edema, tenderness or deformity noted. Skin: Warm and dry. No rash, erythema, pallor or cyanosis Psychiatric: Appropriate mood and affect for situation. Neurological: Alert and keenly responsive. Facies symmetric. Able to raise eyebrows, close eyes, smile, puff mouth, stick out tongue, move tongue left and right and raise palate symmetrically. Able to shrug shoulders. PERRLA. SILT to forehead below eye and at jawline. Can hear soft nose bilaterally. Good finger to nose. Strength 5/5 in bilateral upper and lower extremities. SILT throughout bilateral upper and lower extremities. MDM: - Vitals signs stable. - History obtained via patient. Patient presents with dizziness and vomiting. Patient reports getting up and around this morning she began to feel dizzy described as her head spinning. Denies any change in vision. Reports feeling very unsteady on her feet with ambulation. She states that movements of her head make her dizziness worse. Denies any chest pain or shortness of breath. Reports a history of vertigo. Denies any recent head injury or chiropractic manipulation of her neck - Chronic conditions affecting care: invasive duct adenocarcinoma - Differential diagnoses include, but are not limited to: Peripheral vertigo; CVA; intracranial hemorrhage; ACS; pneumonia - Order placed for continuous cardiac monitoring. At this time, monitor showed rate of 75 bpm with normal sinus rhythm, per my interpretation. - External medical records reviewed. - EKG reviewed by myself showed normal sinus rhythm. Rate 72 bpm. QTc 468. No acute ischemic changes. Noted to have RBBB. - Laboratory workup interpreted by myself showed normal WBC; stable electrolytes; elevated troponin (67.9) - CXR negative for pneumonia, per my interpretation - CT head wo contrast negative for acute intracranial pathology. - CTA head/neck negative for acute pathology. - Patient's repeat troponin 65.5. - Discussed results with patient. Her dizziness sounds like peripheral vertigo, but with her elevated troponin, concern for possible cardiac etiology. Discussed admission with the patient and she was agreeable. - Patient given 324 mg PO aspirin.s - Discussion was had with oncology social worker about patient's case and need for admission. - Hospitalist consulted for admission - Patient admitted to [facility] for further evaluation and management. ASSESSMENT AND PLAN: Diagnosis: dizziness; NSTEMI Plan: admit Past Med/Surg History Medical History Essential hypertension History of colon cancer Infiltrating duct adenocarcinoma (10/15/12) Mixed dyslipidemia Osteoarthritis of multiple joints Restless leg syndrome Type 2 diabetes mellitus Vitamin D deficiency Surgical History History of carpal tunnel release History of D&C History of partial colectomy History of partial mastectomy of right breast History of total right knee replacement Family History Mother Diabetes Cancer Father Heart disease Sister Diabetes Social History Smoking Status: Never smoker Preferred Language: Amharic marital status: current occupational status: retired Feels Safe at Home: Yes Allergies Allergies Allergy/AdvReac Type Severity Reaction Status Date / Time adhesive Allergy Mild RASH Verified 09/29/19 13:29 lisinopril Allergy Mild Cough Verified 09/29/19 13:29 Home Meds Home Medications Medication Instructions Recorded Confirmed omega-3 fatty acids 1,000 mg 1,000 mg PO BID 09/30/18 08/05/22 capsule (Fish Oil Concentrate) calcium carbonate 600 mg calcium 600 mg PO DAILY 04/16/19 08/05/22 (1,500 mg) tablet (Calcium) cholecalciferol (vitamin D3) 25 1,000 unit PO DAILY 04/16/19 08/05/22 mcg (1,000 unit) tablet (Vitamin D3) losartan 100 mg tablet 100 mg PO QAM 04/16/19 08/05/22 lovastatin 10 mg tablet 10 mg PO HS 04/16/19 08/05/22 acetaminophen 500 mg tablet 1,000 mg PO TID 09/29/19 08/05/22 (Tylenol Extra Strength) conjugated estrogens 0.625 mg/gram 0.625 mg vaginal PRN 09/29/19 08/05/22 vaginal cream (Premarin) multivitamin 1 tab PO DAILY 09/29/19 08/05/22 duloxetine 20 mg capsule,delayed 20 mg PO DAILY 08/05/22 08/05/22 release (Cymbalta) imipramine HCl 10 mg tablet 10 mg PO BID 08/05/22 08/05/22 quinine-vitamin E capsule 0 cap PO DAILY PRN cramp 08/05/22 08/05/22 Results & Data (ED) Vital Signs Vital Signs - 24 hr 08/05/22 10:19 08/05/22 10:19 08/05/22 10:58 Temperature 36.6 C Temperature Source Oral Pulse Rate 78 77 Pulse Rate [Apical] 71 Respiratory Rate 18 Blood Pressure 138/92 Blood Pressure [Left Arm] Blood Pressure Mean 107 Blood Pressure Mean [Left Arm] Pulse Oximetry 92 Oxygen Delivery Method Room Air Sepsis Recent Fever Within 48 Hours No Sepsis New/Unexplained Change in Mental Status N/A Sepsis Action Taken by Nursing No Action Required 08/05/22 14:25 Temperature Temperature Source Pulse Rate Pulse Rate [Apical] 80 Respiratory Rate 18 Blood Pressure Blood Pressure [Left Arm] 181/71 H Blood Pressure Mean Blood Pressure Mean [Left Arm] 107 Pulse Oximetry 98 Oxygen Delivery Method Sepsis Recent Fever Within 48 Hours Sepsis New/Unexplained Change in Mental Status Sepsis Action Taken by Nursing Laboratory Data 08/05/22 10:53 08/05/22 10:53 Lab Results 08/05/22 08/05/22 08/05/22 Range/Units 10:53 10:53 10:53 WBC 7.36 (4.8-10.8) K/ul RBC 3.97 L (4.20-5.40) M/uL Hgb 12.6 (12.0-16.0) g/dl Hct 38.3 (37.0-47.0) % MCV 96.5 (80.0-100.0) fL MCH 31.7 (25.0-34.0) pg MCHC 32.9 (32.0-36.0) g/dL RDW Std Deviation 44.1 (36.4-46.3) fL RDW Coeff of Cherie 12.5 (11.5-14.5) % Plt Count 267 (130-400) K/uL MPV 10.2 (9.4-12.4) fL Immature Gran % (Auto) 0.3 % Neut % (Auto) 73.5 % Lymph % (Auto) 18.8 % [place] % (Auto) 6.0 % Eos % (Auto) 1.0 % Baso % (Auto) 0.4 % Neut # (Auto) 5.42 (1.40-6.50) K/uL Lymph # (Auto) 1.38 (1.2-3.4) K/uL [place] # (Auto) 0.44 (0.11-0.59) K/uL Eos # (Auto) 0.07 (0-0.50) K/uL Baso # (Auto) 0.03 (0-0.2) K/uL Immature Gran # (Auto) 0.02 (0.01-0.20) K/uL PT 10.8 (9.0-12.0) Seconds INR 1.0 (0.9-1.1) Sodium 140 (136-145) mmol/L Potassium 4.1 (3.5-5.1) mmol/L Chloride 103 (98-107) mmol/L Carbon Dioxide 30 (21-32) mmol/L Anion Gap 7 (3-11) BUN 16 (6-23) mg/dl Creatinine 0.74 (0.6-1.2) mg/dl Est Cr Clr Drug Dosing 58.1 ml/min Est GFR ( Amer) 89.3 ml/min Est GFR (Non-Af Amer) 77.1 ml/min BUN/Creatinine Ratio 21.6 H (10-20) Glucose 113 H (70-99(Fasting)) mg/dl Calcium 9.1 (8.6-10.3) mg/dl Total Bilirubin 0.4 (0.2-1.0) mg/dl AST 18 (13-39) U/L ALT 13 (7-52) U/L Alkaline Phosphatase 75 (34-104) U/L Troponin I High Sens 65.5 H* (0-14) pg/ml Total Protein 6.7 (6.0-8.3) gm/dl Albumin 4.2 (3.4-5.0) gm/dl Globulin 2.5 (2.5-4.0) gm/dl Albumin/Globulin Ratio 1.7 (0.9-2) SARS-CoV-2, RNA, NAAT (NEGATIVE) 08/05/22 08/05/22 Range/Units 10:53 14:45 WBC (4.8-10.8) K/ul RBC (4.20-5.40) M/uL Hgb (12.0-16.0) g/dl Hct (37.0-47.0) % MCV (80.0-100.0) fL MCH (25.0-34.0) pg MCHC (32.0-36.0) g/dL RDW Std Deviation (36.4-46.3) fL RDW Coeff of Cherie (11.5-14.5) % Plt Count (130-400) K/uL MPV (9.4-12.4) fL Immature Gran % (Auto) % Neut % (Auto) % Lymph % (Auto) % [place] % (Auto) % Eos % (Auto) % Baso % (Auto) % Neut # (Auto) (1.40-6.50) K/uL Lymph # (Auto) (1.2-3.4) K/uL [place] # (Auto) (0.11-0.59) K/uL Eos # (Auto) (0-0.50) K/uL Baso # (Auto) (0-0.2) K/uL Immature Gran # (Auto) (0.01-0.20) K/uL PT (9.0-12.0) Seconds INR (0.9-1.1) Sodium (136-145) mmol/L Potassium (3.5-5.1) mmol/L Chloride (98-107) mmol/L Carbon Dioxide (21-32) mmol/L Anion Gap (3-11) BUN (6-23) mg/dl Creatinine (0.6-1.2) mg/dl Est Cr Clr Drug Dosing ml/min Est GFR ( Amer) ml/min Est GFR (Non-Af Amer) ml/min BUN/Creatinine Ratio (10-20) Glucose (70-99(Fasting)) mg/dl Calcium (8.6-10.3) mg/dl Total Bilirubin (0.2-1.0) mg/dl AST (13-39) U/L ALT (7-52) U/L Alkaline Phosphatase (34-104) U/L Troponin I High Sens 67.9 H* (0-14) pg/ml Total Protein (6.0-8.3) gm/dl Albumin (3.4-5.0) gm/dl Globulin (2.5-4.0) gm/dl Albumin/Globulin Ratio (0.9-2) SARS-CoV-2, RNA, NAAT NEGATIVE (NEGATIVE) Administered Medications Discontinued Medications Aspirin (Aspirin Chew 324 Mg) 324 mg PO NOW STA Stop: 08/05/22 14:18 Last Admin: 08/05/22 14:25 Dose: 324 mg Documented By: COLT Ioversol (Optiray 320 500ml) 109 ml IV ONCE ONE Stop: 08/05/22 11:54 Last Admin: 08/05/22 11:53 Dose: 109 ml Documented By: RAZA Meclizine HCl (Meclizine Hcl 25 Mg Tab) 25 mg PO NOW STA Stop: 08/05/22 10:58 Last Admin: 08/05/22 11:18 Dose: 25 mg Documented By: COLT Imaging Data Radiologist's Impression: Head CT 08/05/22 10:57 CT OF THE HEAD WITHOUT CONTRAST CLINICAL HISTORY: dizziness COMPARISON STUDY: No previous studies for comparison. TECHNIQUE: Helical axial images of the head were obtained without IV contrast. Automated exposure control was utilized for the study. A dose lowering technique was utilized adhering to the principles of ALARA. FINDINGS: No acute intracranial hemorrhage, midline shift or mass effect is present. The ventricular system is unremarkable. The basal cisterns are patent. No extra-axial collections are present. There are no findings to suggest acute dural sinus thrombosis or acute territorial infarct. No significant calvarial abnormalities are present. The right sphenoid sinus is partially opacified. IMPRESSION: No acute intracranial findings. ACT 112: Negative or not required by law. Electronically signed by: Ranulfo Gurrola M.D. 08/05/2022 12:08 PM Head CTA 08/05/22 10:57 CT angio head w con CLINICAL HISTORY: 77 years-old Female with dizziness; gait instability. Acute dizziness COMPARISON STUDY: Head CT of same day TECHNIQUE: Following the IV administration of 109 cc of Optiray, CT angiogram of the brain was performed from the skull base to the vertex. Images are reviewed in the axial, sagittal, and coronal planes. 3-D MIPS images are created and assessed. IV contrast was administered without complication. All measurements were obtained according to NASCET criteria. A dose lowering technique was utilized adhering to the principles of ALARA. FINDINGS: CT ANGIOGRAM OF THE BRAIN: Atherosclerosis with [id number] narrowing of the imaged distal internal carotid arteries, most pronounced in the cavernous segment left ICA on image 88 where there is approximately 50% narrowing. The bilateral anterior and middle cerebral arteries are also patent. The vertebrobasilar system and posterior cerebral arteries are widely patent. There is no aneurysm, high-grade stenosis, or proximal branch occlusion identified. Dural sinuses appear patent. IMPRESSION: No aneurysm, dissection, high-grade stenosis or arterial occlusion. ACT 112: Negative or not required by law. The above report was generated using voice recognition software. It may contain grammatical, syntax or spelling errors. Electronically signed by: Gurjit Webb M.D. 08/05/2022 12:24 PM Neck CTA 08/05/22 10:57 CT angio neck with con CLINICAL HISTORY: dizziness; gait instability TECHNIQUE: CT angiography of the neck was performed following intravenous administration of iodinated contrast. Coronal and sagittal MIPS were obtained from the axial data set and were submitted for review. Automated dose lowering techniques and/or adjustment according to patient size were utilized for this examination. All measurements were calculated based on NASCET criteria. CT DOSE: 1016.86 mGy.cm Comparison: None available at the time of this dictation. FINDINGS: Small thyroid nodules are seen which do not require follow-up by ACR criteria. CTA Neck: A 3 vessel aortic arch is shown. There is no significant atherosclerotic plaque in the aortic arch or the origins of the innominate, left common carotid, and left subclavian arteries. The common carotid, external carotid, cervical segments of the internal carotid arteries, and the cervical segments of the vertebral arteries are patent without hemodynamically significant stenosis. The left vertebral artery is dominant. IMPRESSION: No occlusion, hemodynamically significant stenosis, or dissection in the major cervical arteries. Assessment of stenosis of the internal carotid arteries is based on NASCET criteria. ACT 112: Negative or not required by law. Electronically signed by: Kemar Hartman M.D. 08/05/2022 12:27 PM Chest X-Ray 08/05/22 14:17 XR chest 1V portable CLINICAL HISTORY: dizziness TECHNIQUE: Single frontal radiograph of the chest was obtained. Comparison: Comparison is made to a 04/23/2021 FINDINGS: No lines and tubes are seen. Cardiomegaly is noted. The aortic arch is calcified. The lungs are clear. No evidence of pleural effusion or pneumothorax. IMPRESSION: No acute chest disease. ACT 112: Negative or not required by law. Electronically signed by: Kemar Hartman M.D. 08/05/2022 2:53 PM Discharge Plan Visit Data Chief Complaint: Dizziness ED Provider: Arabella Prabhakar Discharge Problem: Dizziness, Non-ST elevation [place] (NSTEMI) Forms Stand Alone Forms: My [facility] Prescriptions Prescriptions: No Action omega-3 fatty acids [Fish Oil Concentrate] 1,000 mg capsule 1,000 mg PO BID Premarin 0.625 mg/gram cream 0.625 mg PV PRN multivitamin Tablet 1 tab PO DAILY acetaminophen [Tylenol Extra Strength] 500 mg tablet 1,000 mg PO TID Rx Instructions: takes no more than 4 lovastatin 10 mg tablet 10 mg PO HS calcium carbonate [Calcium 600] 600 mg calcium (1,500 mg) Tablet 600 mg PO DAILY losartan 100 mg tablet 100 mg PO QAM cholecalciferol (vitamin D3) [Vitamin D3] 25 mcg (1,000 unit) Tablet 1,000 unit PO DAILY imipramine HCl 10 mg Tablet 10 mg PO BID duloxetine [Cymbalta] 20 mg capsule,delayed release(DR/EC) 20 mg PO DAILY Leg Cramp Relief Capsule 0 cap PO DAILY PRN (Reason: cramp) Rx Instructions: Per pt she says this isn't OTC and they have to send away for it. Referrals Referrals: Pedro Cooper MD [Primary Care Provider] -
--- NOTE | 2022-08-05 12:26 | CT Scan Report ---
CT angio head w con CLINICAL HISTORY: 77 years-old Female with dizziness; gait instability. Acute dizziness COMPARISON STUDY: Head CT of same day TECHNIQUE: Following the IV administration of 109 cc of Optiray, CT angiogram of the brain was perfor med from the skull base to the vertex. Images are reviewed in the axial, sagittal, and coronal planes . 3-D MIPS images are created and assessed. IV contrast was administered without complication. All me asurements were obtained according to NASCET criteria. A dose lowering technique was utilized adherin g to the principles of ALARA. FINDINGS: CT ANGIOGRAM OF THE BRAIN: Atherosclerosis with [id number] narrowing of the imaged distal internal carotid arteries, most pronounced in the cavernous segment left ICA on image 88 where there is approximately 50% narrowing. The bilateral anterior and middle cerebral arteries are also patent. The vertebrobasilar system and p osterior cerebral arteries are widely patent. There is no aneurysm, high-grade stenosis, or proximal branch occlusion identified. Dural sinuses appear patent. IMPRESSION: No aneurysm, dissection, high-grade stenosis or arterial occlusion. ACT 112: Negative or not required by law. The above report was generated using voice recognition software. It may contain grammatical, syntax o r spelling errors. Electronically signed by: Gurjit Webb M.D. 08/05/2022 12:24 PM
--- NOTE | 2022-08-05 12:29 | CT Scan Report ---
CT angio neck with con CLINICAL HISTORY: dizziness; gait instability TECHNIQUE: CT angiography of the neck was performed following intravenous administration of iodinate d contrast. Coronal and sagittal MIPS were obtained from the axial data set and were submitted for re view. Automated dose lowering techniques and/or adjustment according to patient size were utilized f or this examination. All measurements were calculated based on NASCET criteria. CT DOSE: 1016.86 mGy.cm Comparison: None available at the time of this dictation. FINDINGS: Small thyroid nodules are seen which do not require follow-up by ACR criteria. CTA Neck: A 3 vessel aortic arch is shown. There is no significant atherosclerotic plaque in the aor tic arch or the origins of the innominate, left common carotid, and left subclavian arteries. The co mmon carotid, external carotid, cervical segments of the internal carotid arteries, and the cervical segments of the vertebral arteries are patent without hemodynamically significant stenosis. The left vertebral artery is dominant. IMPRESSION: No occlusion, hemodynamically significant stenosis, or dissection in the major cervical arteries. Assessment of stenosis of the internal carotid arteries is based on NASCET criteria. ACT 112: Negative or not required by law. Electronically signed by: Kemar Hartman M.D. 08/05/2022 12:27 PM
[2022-08-05] MEDS ORDERED: ASPIRIN CHEW 324 MG PO STA (14:17)
--- NOTE | 2022-08-05 14:42 | History & Physical Report ---
Date of Service August 05, 2022 Assessment & Plan (1) Benign paroxysmal positional vertigo: Plan: 77 y/o female with a history of diet-controlled DM2, HTN, dyslipidemia, and prior BPPV who presented to the ED today with positional dizziness that started around 4 am today. Pt has a hx of BPPV, episodes in outpatient chart appear to occur about yearly for last 5-6 years, but currently symptoms feel slightly different from prior episodes. Troponin in the ED noted to be elevated though pt denies chest pain, has no acute EKG changes. BP also elevated at present at 167/106 (was 140s-180s this morning at home, which pt reports is unusual for her) but pt has not taken her losartan since yesterday morning. Initial brain imaging was also negative for CVA, no significant carotid stenosis. Symptoms seem most consistent with BPPV but will observe pt overnight to rule out cardiac pathology in view of elevated troponin, monitor for neurologic changes. - Observe in PCU overnight - Trend troponin, repeat EKG in AM and with any cardiac symptoms - Update ECHO - last done in 2020, showed aortic sclerosis - Brain MRI to complete stroke work-up - Consult PT for Eppley's maneuver - pt has not had much relief with meclizine previously - Check orthostatic vital signs - Fall precautions while symptomatic (2) Essential hypertension: Plan: BP elevated in the ED but missed morning dosing of losartan - will resume and give first dose now (3) Type 2 diabetes mellitus: Plan: Diet-controlled. Last A1c in June was 6.0. Diabetic diet while admitted (4) Mixed dyslipidemia: Plan: Continue statin therapy (5) Osteoarthritis of multiple joints: (6) Overactive bladder: Plan: Currently on imipramine but doesn't feel like this is helping - will decrease to once daily since TCAs can be associated with dizziness. Continue to f/u with specialist outpatient. Plan Pt seen and reviewed with collaborating physician, Dr. Limon. Plan of care discussed and as outlined above. Code Status: Full Code DVT Prophylaxis: James Gay PA-C History of Present Illness Chief Complaint: dizziness Primary Care Provider: Pedro Cooper MD This is a 77 y/o female with a history of diet-controlled DM (last A1c in June - 6.0), HTN, dyslipidemia, overactive bladder, prior colon cancer s/p partial colectomy, breast cancer s/p partial mastectomy and XRT, BPPV, and osteoarthritis in multiple joints who presented to the ED today with episodic dizziness that started early this morning. Pt reports waking up around 4 am to go to the bathroom - when she got up, she noticed dizziness described as a sensation that she was spinning. She went back to bed for a couple of hours and when she got up, she again noted the dizziness "all in my head" that was worse with sitting to standing, moving head, ambulation. She had one episode of emesis when she tried to move around but denies significant nausea. She does have a remote history of vertigo but states this feels different - with the vertigo, it felt more like the room was spinning. Currently, as long as she is lying still in bed, she feels okay but recurrent dizziness with trying to move around. In the ED, her troponin was noted to be elevated so she was referred for admission. She denies chest pain, palpitations, shortness of breath, visual changes, numbness, tingling, weakness. She had transient sharp pain that went through her head from one ear to the other this morning lasting a few seconds but this resolved without intervention and has not happened again. Pt had an ECHO in 2020 that showed hyperdynamic LV with EF >65% but no wall motion abnormalities, moderaly dilated left atrium, aortic sclerosis. She does not recall a prior stress test or cardiac cath. She denies any exertional chest pain or pressure and maintains a relatively active lifestyle. Allergies Allergy/AdvReac Type Severity Reaction Status Date / Time adhesive Allergy Mild RASH Verified 09/29/19 13:29 lisinopril Allergy Mild Cough Verified 09/29/19 13:29 Home Medications Medication Instructions Recorded Confirmed Type omega-3 fatty acids 1,000 mg 1,000 mg PO DAILY 09/30/18 08/05/22 History capsule (Fish Oil Concentrate) calcium carbonate 600 mg calcium 600 mg PO DAILY 04/16/19 08/05/22 History (1,500 mg) tablet (Calcium) cholecalciferol (vitamin D3) 25 1,000 unit PO DAILY 04/16/19 08/05/22 History mcg (1,000 unit) tablet (Vitamin D3) losartan 100 mg tablet 100 mg PO QAM 04/16/19 08/05/22 History lovastatin 10 mg tablet 10 mg PO HS 04/16/19 08/05/22 History acetaminophen 500 mg tablet 1,000 mg PO QAM 09/29/19 08/05/22 History (Tylenol Extra Strength) conjugated estrogens 0.625 mg/gram 0.625 mg vaginal PRN 09/29/19 08/05/22 History vaginal cream (Premarin) multivitamin 1 tab PO DAILY 09/29/19 08/05/22 History duloxetine 20 mg capsule,delayed 20 mg PO HS 08/05/22 08/05/22 History release (Cymbalta) imipramine HCl 10 mg tablet 10 mg PO BID 08/05/22 08/05/22 History quinine-vitamin E capsule 0 cap PO DAILY PRN cramp 08/05/22 08/05/22 History turmeric 400 mg capsule 400 mg PO DAILY 08/05/22 08/05/22 History Past Med/Surg History Medical History (Updated 08/05/22 @ 21:42 by Hafsa Limon, DO) Benign paroxysmal positional vertigo Essential hypertension History of colon cancer Infiltrating duct adenocarcinoma (10/15/12) Mixed dyslipidemia Osteoarthritis of multiple joints Overactive bladder Restless leg syndrome Type 2 diabetes mellitus Vitamin D deficiency Surgical History History of carpal tunnel release History of D&C History of partial colectomy History of partial mastectomy of right breast History of total right knee replacement Family History Mother Diabetes Cancer Father Heart disease Sister Diabetes Social History Smoking Status: Never smoker Hx Substance Use: No Preferred Language: Chinese Communication Ability: Effective Worship Leader Required: No Beliefs That Will Affect Care: None marital status: Current Living Situation: Spouse current occupational status: retired Other Information That Helps Us Care for You: No Feels Safe at Home: Yes Safety Concerns: Feels Safe At This Time Assistive Devices: Cane, Denture - Upper, Glasses and Walker Review of Systems Review of Systems: All systems reviewed & are unremarkable except as noted in HPI & below Constitutional: + anorexia; no fever and no chills Eyes: no diplopia and no worsening vision Ear, Nose, Mouth, Throat: + nasal discharge (chronic runny nose); no nasal congestion, no sinus pain/pressure, no sore throat and no dysphagia Respiratory: no cough, no dyspnea and no wheezing Cardiovascular: no chest pain with activity, no palpitations and no syncope Gastrointestinal: + constipation (chronic straining, BM every other day); no abdominal pain, no dysphagia, no diarrhea/loose stools and no blood in stools Genitourinary: + urinary urgency; no dysuria and no hematuria Musculoskeletal: chronic issues with arthritis pains Integumentary: no yellowing of the skin Neurologic: + dizziness; no generalized weakness, no paresthesia and no seizure-like activity Psychiatric: no depression and no anxiety Physical Exam Constitutional: well developed and well nourished; no acute distress Eyes: PERRL, conjunctivae normal, anicteric sclerae ENMT: external ear and nose normal, oropharynx normal Neck: trachea midline Respiratory: no respiratory distress and no labored breathing Auscultation: lungs clear to auscultation bilaterally; no rales, no rhonchi and no wheezes Cardiovascular: Rate/Rhythm: regular rate and regular rhythm Vessels: dorsalis pedis pulses present and radial pulses present; no carotid bruit Extremities: no pedal edema Chest (Breasts): Additional Comments: right chest wall tenderness just lateral to right breast Gastrointestinal (Abdomen): Inspection/Auscultation: normal bowel sounds; abdomen not distended Percussion/Palpation: abdomen soft; abdomen nontender Musculoskeletal: Head/Neck/Chest: normocephalic, head atraumatic and neck supple Skin: no jaundice Neurologic: moves all extremities; no focal motor deficits and not confused Speech / Cognition: normal speech Motor/Sensory: no tremor and no fasciculations Cranial Nerves: PERRL, normal accommodation, EOM intact bilaterally, tongue midline, able to rotate head bilaterally, able to elevate shoulders bilaterally, no nystagmus and symmetric palate elevation Psychiatric: A+Ox3, euthymic affect Results & Data Results & Data Vital Signs (Past 12 Hours) Vital Signs Temp Pulse Pulse Resp BP BP Pulse Ox 08/05/22 14:25 80 18 181/71 H 98 08/05/22 10:58 77 08/05/22 10:19 71 08/05/22 10:19 36.6 C 78 18 138/92 92 O2 Del Method 08/05/22 14:25 08/05/22 10:58 08/05/22 10:19 08/05/22 10:19 Room Air Laboratory Results Laboratory Results - last 24 hr 08/05/22 08/05/22 08/05/22 10:53 10:53 10:53 WBC 7.36 RBC 3.97 L Hgb 12.6 Hct 38.3 MCV 96.5 MCH 31.7 MCHC 32.9 RDW Std Deviation 44.1 RDW Coeff of Cherie 12.5 Plt Count 267 MPV 10.2 Immature Gran % (Auto) 0.3 Neut % (Auto) 73.5 Lymph % (Auto) 18.8 [place] % (Auto) 6.0 Eos % (Auto) 1.0 Baso % (Auto) 0.4 Neut # (Auto) 5.42 Lymph # (Auto) 1.38 [place] # (Auto) 0.44 Eos # (Auto) 0.07 Baso # (Auto) 0.03 Immature Gran # (Auto) 0.02 PT 10.8 INR 1.0 Sodium 140 Potassium 4.1 Chloride 103 Carbon Dioxide 30 Anion Gap 7 BUN 16 Creatinine 0.74 Est Cr Clr Drug Dosing 58.1 Est GFR ( Amer) 89.3 Est GFR (Non-Af Amer) 77.1 BUN/Creatinine Ratio 21.6 H Glucose 113 H Calcium 9.1 Total Bilirubin 0.4 AST 18 ALT 13 Alkaline Phosphatase 75 Troponin I High Sens 65.5 H* Total Protein 6.7 Albumin 4.2 Globulin 2.5 Albumin/Globulin Ratio 1.7 08/05/22 10:53 WBC RBC Hgb Hct MCV MCH MCHC RDW Std Deviation RDW Coeff of Cherie Plt Count MPV Immature Gran % (Auto) Neut % (Auto) Lymph % (Auto) [place] % (Auto) Eos % (Auto) Baso % (Auto) Neut # (Auto) Lymph # (Auto) [place] # (Auto) Eos # (Auto) Baso # (Auto) Immature Gran # (Auto) PT INR Sodium Potassium Chloride Carbon Dioxide Anion Gap BUN Creatinine Est Cr Clr Drug Dosing Est GFR ( Amer) Est GFR (Non-Af Amer) BUN/Creatinine Ratio Glucose Calcium Total Bilirubin AST ALT Alkaline Phosphatase Troponin I High Sens 67.9 H* Total Protein Albumin Globulin Albumin/Globulin Ratio Diagnostic Findings Head CT 08/05/22 10:57 CT OF THE HEAD WITHOUT CONTRAST CLINICAL HISTORY: dizziness COMPARISON STUDY: No previous studies for comparison. TECHNIQUE: Helical axial images of the head were obtained without IV contrast. Automated exposure control was utilized for the study. A dose lowering technique was utilized adhering to the principles of ALARA. FINDINGS: No acute intracranial hemorrhage, midline shift or mass effect is present. The ventricular system is unremarkable. The basal cisterns are patent. No extra-axial collections are present. There are no findings to suggest acute dural sinus thrombosis or acute territorial infarct. No significant calvarial abnormalities are present. The right sphenoid sinus is partially opacified. IMPRESSION: No acute intracranial findings. Head CTA 08/05/22 10:57 CT angio head w con CLINICAL HISTORY: 77 years-old Female with dizziness; gait instability. Acute dizziness COMPARISON STUDY: Head CT of same day TECHNIQUE: Following the IV administration of 109 cc of Optiray, CT angiogram of the brain was performed from the skull base to the vertex. Images are reviewed in the axial, sagittal, and coronal planes. 3-D MIPS images are created and assessed. IV contrast was administered without complication. All measurements were obtained according to NASCET criteria. A dose lowering technique was utilized adhering to the principles of ALARA. FINDINGS: CT ANGIOGRAM OF THE BRAIN: Atherosclerosis with [id number] narrowing of the imaged distal internal carotid arteries, most pronounced in the cavernous segment left ICA on image 88 where there is approximately 50% narrowing. The bilateral anterior and middle cerebral arteries are also patent. The vertebrobasilar system and posterior cerebral arteries are widely patent. There is no aneurysm, high-grade stenosis, or proximal branch occlusion identified. Dural sinuses appear patent. IMPRESSION: No aneurysm, dissection, high-grade stenosis or arterial occlusion. Neck CTA 08/05/22 10:57 CT angio neck with con CLINICAL HISTORY: dizziness; gait instability TECHNIQUE: CT angiography of the neck was performed following intravenous administration of iodinated contrast. Coronal and sagittal MIPS were obtained from the axial data set and were submitted for review. Automated dose lowering techniques and/or adjustment according to patient size were utilized for this examination. All measurements were calculated based on NASCET criteria. CT DOSE: 1016.86 mGy.cm Comparison: None available at the time of this dictation. FINDINGS: Small thyroid nodules are seen which do not require follow-up by ACR criteria. CTA Neck: A 3 vessel aortic arch is shown. There is no significant atherosclerotic plaque in the aortic arch or the origins of the innominate, left common carotid, and left subclavian arteries. The common carotid, external carotid, cervical segments of the internal carotid arteries, and the cervical segments of the vertebral arteries are patent without hemodynamically significant stenosis. The left vertebral artery is dominant. IMPRESSION: No occlusion, hemodynamically significant stenosis, or dissection in the major cervical arteries. Assessment of stenosis of the internal carotid arteries is based on NASCET criteria. Medications Administered Discontinued Medications Aspirin (Aspirin Chew 324 Mg) 324 mg PO NOW STA Stop: 08/05/22 14:18 Last Admin: 08/05/22 14:25 Dose: 324 mg Documented By: COLT Ioversol (Optiray 320 500ml) 109 ml IV ONCE ONE Stop: 08/05/22 11:54 Last Admin: 08/05/22 11:53 Dose: 109 ml Documented By: RAZA Meclizine HCl (Meclizine Hcl 25 Mg Tab) 25 mg PO NOW STA Stop: 08/05/22 10:58 Last Admin: 08/05/22 11:18 Dose: 25 mg Documented By: COLT Supervising Physician Co-Signing Physician Notes I have seen and examined the patient and have discussed the case with the provider above. I agree with the assessment and plan as stated with the following exceptions. 77-year-old female presents with acute onset vertigo. She has a history of BPPV in 2017. Yesterday she reports leaning over and doing some gardening for about an hour. She specifically states not bending at her knees because she cannot given scar tissue that is there postoperatively. She was out in the heat and did have to come in and cooldown. She has been eating and drinking normally. She denies any recent URIs and denies any hearing loss. She otherwise has no focal neurologic deficits. She is mentating clearly. She was hypertensive on arrival with blood pressure up to 212/82. After taking her home losartan which had been missed this morning blood pressure improved to 130/77. No chest pain or shortness of breath was noted. On physical exam she is in no acute distress but position changes especially of her head will cause her symptoms. Tympanic membrane's were clear with no middle ear effusion bilaterally. Oropharynx was clear with mucous membranes moist. Skin is warm and dry. Extraocular movements were intact with right-sided horizontal nystagmus. Pupils were PERRL. No carotid bruits were auscultated. CV exam reveals S1/S2 heard with regular rate and rhythm. No evidence of murmurs. Lungs were clear to auscultation throughout. Work-up for vertigo including a CBC and CHEM panel were normal. Highly sensitive troponin was elevated at 65 with a flat troponin trend. Head CT without contrast revealed no acute intracranial findings. Head and neck CTA was negative for aneurysm dissection high-grade stenosis or arterial occlusion. Chest x-ray revealed no acute chest disease. Brain MRI revealed no acute or subacute infarct with white matter suggestive of chronic microvascular ischemic disease. 1. BPPV 2. Hypertensive urgency Elevated blood pressure likely secondary to noncompliance with medications this morning along with some situational elevation in blood pressure given stressful circumstances today. Blood pressure has improved with administration of home blood pressure medication. Work-up is negative for stroke or central cause of vertigo and patient has a history of BPV in the past. Meclizine has been u nsuccessful for her previously. We will ask PT to perform Pooja maneuver and continue to encourage rehydration overnight. Consider neurology consult if symptoms are not improved in the morning. Elevated troponin likely secondary to demand ischemia. Echo pending. Braxton,
--- NOTE | 2022-08-05 14:54 | XRay Report ---
XR chest 1V portable CLINICAL HISTORY: dizziness TECHNIQUE: Single frontal radiograph of the chest was obtained. Comparison: Comparison is made to a 04/23/2021 FINDINGS: No lines and tubes are seen. Cardiomegaly is noted. The aortic arch is calcified. The lungs are clear . No evidence of pleural effusion or pneumothorax. IMPRESSION: No acute chest disease. ACT 112: Negative or not required by law. Electronically signed by: Kemar Hartman M.D. 08/05/2022 2:53 PM
[2022-08-05] MEDS ORDERED: ACETAMINOPHEN 325 MG TAB PO PRN (15:25)
[2022-08-05] MEDS: LOSARTAN POTASSIUM 50 MG TAB PO SCH (16:46)
--- NOTE | 2022-08-05 18:04 | Electrocardiogram Report ---
Test Reason : Blood Pressure : / mmHG Vent. Rate : 072 BPM Atrial Rate : 072 BPM P-R Int : 184 ms QRS Dur : 128 ms QT Int : 428 ms P-R-T Axes : 043 -38 043 degrees QTc Int : 468 ms Normal sinus rhythm Left axis deviation Right bundle branch block Abnormal ECG No previous ECGs available Confirmed by Gee Cat ([id number]) on 08/05/2022 6:03:50 PM Referred By: REFERRED SELF Confirmed By:Osmel Cat
--- NOTE | 2022-08-05 18:28 | Magnetic Resonance Report ---
MR brain wo con HISTORY: 77 years-old Female dizziness acute dizziness COMPARISON: Head CT of same day TECHNIQUE: Multiplanar multisequence MRI of the brain was obtained without the use of IV contrast FINDINGS: No restricted diffusion. Midline structures appear unremarkable. Degenerative changes of the imaged c ervical spine. No acute intracranial hemorrhage, midline shift, abnormal extra-axial collection, hydr ocephalus or intracranial mass. No pathologic blooming artifact on the T2*series. Involutional change s with mild to moderate T2/FLAIR hyperintense foci throughout the white matter suggestive of chronic microvascular ischemic disease. Cerebral venous sinuses and major arterial flow voids are patent. There is thickening of the right sp henoid sinus. Prior bilateral lens repair. Unremarkable skull and soft tissues. IMPRESSION: No acute intracranial abnormality. No acute or subacute infarct. ACT 112: Negative or not required by law. The above report was generated using voice recognition software. It may contain grammatical, syntax o r spelling errors. Electronically signed by: Gurjit Webb M.D. 08/05/2022 6:26 PM
[2022-08-05] MEDS ORDERED: LOVASTATIN 20 MG TAB PO SCH (21:00)
[2022-08-05] MEDS ORDERED: IMIPRAMINE HCL 10 MG TAB PO SCH (21:00)
[2022-08-05] MEDS ORDERED: DULoxetine HCL 20 MG CAP PO SCH (21:00)
[2022-08-06] MEDS: LOSARTAN POTASSIUM 50 MG TAB PO SCH (08:52)
[2022-08-06] MEDS ORDERED: MULTIVITAMIN TAB PO SCH (09:00)
[2022-08-06] MEDS ORDERED: ENOXAPARIN INJ 40 MG/0.4 ML SYR SQ SCH (09:00)
[2022-08-06] MEDS ORDERED: ACETAMINOPHEN 500 MG TAB PO SCH (09:00)
[2022-08-06] MEDS ORDERED: CHOLECALCIFEROL 1,000 UNITS 25 MCG TAB PO SCH (09:00)
--- NOTE | 2022-08-06 12:12 | Electrocardiogram Report ---
Test Reason : Blood Pressure : / mmHG Vent. Rate : 083 BPM Atrial Rate : 083 BPM P-R Int : 164 ms QRS Dur : 128 ms QT Int : 412 ms P-R-T Axes : -89 -41 006 degrees QTc Int : 484 ms Unusual P axis, possible ectopic atrial rhythm Left axis deviation Right bundle branch block Abnormal ECG When compared with ECG of 05-AUG-2022 10:44, Ectopic atrial rhythm has replaced Sinus rhythm T wave inversion now evident in Inferior leads Confirmed by Gee Cat ([id number]) on 08/06/2022 12:11:45 PM Referred By: REFERRED SELF Confirmed By:Osmel Cat
[2022-08-06] MEDS ORDERED: diphenhydrAMINE Capsule 25 MG CAP PO ONE (13:08)
[2022-08-06] MEDS ORDERED: predniSONE 20 MG TAB PO SCH (13:15)
--- NOTE | 2022-08-06 15:54 | Discharge Summary ---
Date of Service August 06, 2022 Admission HPI Per Admitting Provider This is a 77 y/o female with a history of diet-controlled DM (last A1c in June - 6.0), HTN, dyslipidemia, overactive bladder, prior colon cancer s/p partial colectomy, breast cancer s/p partial mastectomy and XRT, BPPV, and osteoarthritis in multiple joints who presented to the ED today with episodic dizziness that started early this morning. Pt reports waking up around 4 am to go to the bathroom - when she got up, she noticed dizziness described as a sensation that she was spinning. She went back to bed for a couple of hours and when she got up, she again noted the dizziness "all in my head" that was worse with sitting to standing, moving head, ambulation. She had one episode of emesis when she tried to move around but denies significant nausea. She does have a remote history of vertigo but states this feels different - with the vertigo, it felt more like the room was spinning. Currently, as long as she is lying still in bed, she feels okay but recurrent dizziness with trying to move around. In the ED, her troponin was noted to be elevated so she was referred for admission. She denies chest pain, palpitations, shortness of breath, visual changes, numbness, tingling, weakness. She had transient sharp pain that went through her head from one ear to the other this morning lasting a few seconds but this resolved without intervention and has not happened again. Pt had an ECHO in 2020 that showed hyperdynamic LV with EF >65% but no wall motion abnormalities, moderaly dilated left atrium, aortic sclerosis. She does not recall a prior stress test or cardiac cath. She denies any exertional chest pain or pressure and maintains a relatively active lifestyle. Admission Exam Per Admitting Provider Constitutional: well developed and well nourished; no acute distress Eyes: PERRL, conjunctivae normal, anicteric sclerae ENMT: external ear and nose normal, oropharynx normal Neck: trachea midline Respiratory: no respiratory distress and no labored breathing Auscultation: lungs clear to auscultation bilaterally; no rales, no rhonchi and no wheezes Cardiovascular: Rate/Rhythm: regular rate and regular rhythm Vessels: selvin salis pedis pulses present and radial pulses present; no carotid bruit Extremities: no pedal edema Chest (Breasts): Additional Comments: right chest wall tenderness just lateral to right breast Gastrointestinal (Abdomen): Inspection/Auscultation: normal bowel sounds; abdomen not distended Percussion/Palpation: abdomen soft; abdomen nontender Musculoskeletal: Head/Neck/Chest: normocephalic, head atraumatic and neck supple Skin: no jaundice Neurologic: moves all extremities; no focal motor deficits and not confused Speech / Cognition: normal speech Motor/Sensory: no tremor and no fasciculations Cranial Nerves: PERRL, normal accommodation, EOM intact bilaterally, tongue midline, able to rotate head bilaterally, able to elevate shoulders bilaterally, no nystagmus and symmetric palate elevation Psychiatric: A+Ox3, euthymic affect Principal Diagnosis Vertigo Possible labrynthitis Discharge Exam Constitutional + well hydrated; no acute distress Eyes PERRL, conjunctivae normal, anicteric sclerae ENMT external ear and nose normal, oropharynx normal Respiratory normal respiratory effort, lungs clear to auscultation Cardiovascular Rate/Rhythm: regular rate and regular rhythm S1 S2 Gastrointestinal (Abdomen) normal bowel sounds, soft, nontender, no hepatosplenomegaly Musculoskeletal no cyanosis or clubbing, extremities motor strength 5/5 Neurologic PERRL, EOMI, accommodation nl, no face palsy, no dysarthria Psychiatric A+Ox3, euthymic affect Discharge Data Allergies Allergy/AdvReac Type Severity Reaction Status Date / Time adhesive Allergy Mild RASH Verified 09/29/19 13:29 lisinopril Allergy Mild Cough Verified 09/29/19 13:29 Consultations 08/05/22 14:29 ED Decision to Admit Stat Ordered Studies 08/05/22 10:57 CT head/brain wo con Stat CTA head w con [CT angio head w con] Stat CTA neck with con [CT angio neck with con] Stat 08/05/22 15:49 MRI Brain [MR brain wo con] Routine Hospital Course (1) Vertigo: 77 y/o female with a history of diet-controlled DM2, HTN, dyslipidemia, and prior BPPV who presented to the ED with dizziness and vertigo Patient reported feeling of head spining On my questioning today, she mentioned that she has had 'ringing in her ears' for about 1 month and sinus congestion. Denied fever, chills, nausea, cough CT head, CTA head/neck and MRI brain on admission were negative for stroke I performed Hubbard-Hallpike maneuvre which was negative Patient's symptoms likely labyrinthitis based on history Gave diphenhydramine and started prednisone Patient reports feeling better Was evaluated by PT. I also called patient's daughter in law who is an RN and updated her per patient's request. Patient discharged with diphenhydramine and prednisone and to follow up with PCP next week (2) Essential hypertension: BP elevated in the ED but had missed morning dose of losartan on day of presentation BP is normal today on home antihypertensives Patient's trop on presentation was 65. Trend was flat Denied any chest pain or shortness of breath EKG showed some dynamic changes, ectopic P wave and old RBBB. I reviewed the EKG with [employer] Dr Jacques. No concern for ischemia at this time. Patient had TTE done today as well. PCP to follow up final Echo report (3) Type 2 diabetes mellitus: Diet-controlled. Last A1c in June was 6.0. (4) Mixed dyslipidemia: Continue statin therapy (5) Osteoarthritis of multiple joints: (6) Overactive bladder: Currently on imipramine but doesn't feel like this is helping - will decrease to once daily since TCAs can be associated with dizziness. Continue to f/u with specialist outpatient. Total Time Total Time Spent Total Time Spent (In Minutes): 45 Total Time Includes: Examination of the Patient, Discharge Planning, Medication Reconciliation and Communication With Other Providers Discharge Plan Discharge Items Patient Disposition: Home - Self-Care Reason For Visit: DIZZINESS Discharge Diagnosis: Vertigo Possible labrynthitis Activity: Resume your previous activity Non-emergency contact: Primary Care Provider Call non-emergency contact if: you have any medication questions Follow-up/Referrals: Pedro Cooper MD [Primary Care Provider] - (Date & Time 08/13/2022 2:00 PM Provider Pedro Cooper MD Department [facility] ) Diet: Heart Healthy Addtl Attending Provider Instructions: Mrs Gilbert You came to the hospital due to dizziness and vertigo. You were extensively evaluated. You also reported tinnitus (ringing in the ear) and some congestion for the past month. These are likely due to labrynthitis. You are being discharged on benadryl and short course prednisone. Please ensure follow up with your Primary Doctor within one week. If symptoms persists, you may need to see and ENT doctor. It was a pleasure taking care of you. Pending Studies at Discharge: No Stand-Alone Forms: My [facility], Smoking Cessation Medications and DC Order Prescriptions: New prednisone 20 mg Tablet 40 mg PO DAILY 5 Days Qty: 10 0RF diphenhydramine HCl [Benadryl] 25 mg capsule 25 mg PO Q8H PRN (Reason: dizziness or vertigo) Qty: 14 0RF Continued omega-3 fatty acids [Fish Oil Concentrate] 1,000 mg capsule 1,000 mg PO DAILY Premarin 0.625 mg/gram cream 0.625 mg PV PRN multivitamin Tablet 1 tab PO DAILY acetaminophen [Tylenol Extra Strength] 500 mg tablet 1,000 mg PO QAM lovastatin 10 mg tablet 10 mg PO HS calcium carbonate [Calcium 600] 600 mg calcium (1,500 mg) Tablet 600 mg PO DAILY losartan 100 mg tablet 100 mg PO QAM cholecalciferol (vitamin D3) [Vitamin D3] 25 mcg (1,000 unit) Tablet 1,000 unit PO DAILY imipramine HCl 10 mg Tablet 10 mg PO BID duloxetine [Cymbalta] 20 mg capsule,delayed release(DR/EC) 20 mg PO HS quinine-vitamin E Capsule 0 cap PO DAILY PRN (Reason: cramp) Rx Instructions: Per pt she says this isn't OTC and they have to send away for it. turmeric 400 mg Capsule 400 mg PO DAILY Discharge Orders: Discharge Order (Routine); Ordered 08/06/22 Ordered By: Codi Mcdonough Admission Data Admit Date/Time: 08/05/22 14:45 Attending Provider: Codi Mcdonough I. Admit Provider: Hafsa Limon Primary Care Provider: Pedro Cooper Other Providers: Hafsa Limon Other Interventions: Discharge Summary Assessment (RN) Last Done: 08/06/22 15:31
== END 2022-08-06 16:28 | disposition home or self-care (01) ==
LOC: 4W 10:30 → ED 10:30 → SUATTDRO 14:45 → 4W 15:18